=== PATIENT | female | born 1940 | race Caucasian/White ===

== ENCOUNTER 2018-06-13 14:35 | Outpatient (REF) | payer OTHER, SELFPAY ==
[2018-06-15 11:02] LABS: HBs Antibody, Quant <3.1 mIU/mL; Hepatitis B Surface Ab Negative
[2018-06-15 11:14] LABS: Hepatitis B Surface Ag Negative (NEGAT)
[2018-06-15 11:39] LABS: HIV-1/2 Ag & Ab Screen Negative (NEGAT)
[2018-06-15 11:47] LABS: Hepatitis C Ab w Rflx HCV PCR Negative (NEGAT)
== END 2018-06-13 14:36 ==
LOC: NCHCN 14:35
PROVIDERS: PCP Internal Medicine; Visit Provider Internal Medicine
DX: Z77.21 Contact with and (suspected) exposure to potentially hazardous body fluids (principal); Z11.4 Encounter for screening for human immunodeficiency virus [HIV]; Z11.59 Encounter for screening for other viral diseases
CPT/HCPCS: 86706; 86803; 87340; 87389

== ENCOUNTER 2018-08-06 15:21 | Outpatient (REF) | payer MEDICARE, BC, SELFPAY ==
[2018-08-06 21:48] LABS: Bilirubin Negative (Negative); Blood Negative (Negative); Clarity Clear; Glucose Negative (Negative); Ketones Negative (Negative); Leukocyte Esterase Trace (Negative); Nitrite Positive (Negative); Specific Gravity 1.015 (1.005-1.025); Urobilinogen 0.2 EU/dL (Up TO 0.2)
[2018-08-06 22:04] LABS: Bacteria Many HPF (Negative); C & S Indicated? Yes; Casts Negative LPF (Negative); Crystals Negative HPF (Negative); Epithelial Cells Few HPF (Negative); Mucus Negative (Negative); RBC Negative (0-2)
== END 2018-08-06 15:41 ==
LOC: LBN 15:21
PROVIDERS: PCP Internal Medicine; Visit Provider Radiology Radiation Oncology
DX: C49.9 Malignant neoplasm of connective and soft tissue, unspecified (principal)
CPT/HCPCS: 87077; 81003; 81015; 87086; 87186

== ENCOUNTER 2018-10-23 01:07 | Outpatient (CLI) | payer MEDICARE, BC, SELFPAY ==
--- NOTE | 2018-10-23 07:00 | DI.CT_ITS ---
SYMPTOM/DIAGNOSIS: 1 MONTH S/P RESECTION LT UPPER GROIN SARCOMA WITH POST OP RADIATION CT ABDOMEN AND PELVIS: CT scan of the abdomen and pelvis was performed following oral and intravenous contrast material. Comparison is 07/03/18 No acute findings are seen in the lung bases. The liver is normal in size. No evidence of an hepatic mass is seen. The portal and superior mesenteric veins are patent. There is layering debris seen within the gallbladder. No biliary ductal dilatation is seen. The pancreas and juliann-pancreatic soft tissues are unremarkable as are the spleen and adrenal glands. The kidneys show normal and symmetric enhancement. There are hypodensities seen in the kidneys, they are too small for further characterization but likely reflect small cysts. There is a stable cyst in the upper pole of the left kidney. The urinary bladder is intact. The patient appears to be status post hysterectomy. There is diverticulosis of the colon but no evidence of acute diverticulitis. No evidence of bowel obstruction or bowel inflammatory process. No findings to suggest an acute appendicitis are present. There is atherosclerosis of the abdominal aorta but no aneurysmal dilatation. Note is made of a retro-aortic left renal vein. No significant abdominal or pelvic adenopathy, ascites or pneumoperitoneum is seen. Post surgical changes are seen in the left inguinal region. The previously noted enhancing mass in the left inguinal region is not visualized. There is however, a fluid collection in the left inguinal region measuring 7.9 cm transverse by 3.4 cm AP x 6 cm cranial caudad. Degenerative changes are seen in the spine No aggressive osseous lesions are seen in the bones. There are surgical clips seen in the retroperitoneum around the right kidney. There is unchanged thickening seen in the right retroperitoneum. IMPRESSION: 1. Interval resection of the enhancing soft tissue mass in the left inguinal region. 2. 8 cm fluid collection in the left inguinal region. Surgical clips are in this region. This is likely post surgical. This may represent a seroma or resolving hematoma. Abscess cannot be entirely excluded. 3. Stable post surgical changes in the right retroperitoneum 4. No evidence of an acute abdomen.
[2018-10-23 07:42] LABS: CREATININE 0.83 mg/dL (0.55-1.02)
[2018-10-23] MEDS: Omnipaque 350 MG/ML 50 ML BTL IJ (09:15)
[2018-10-23] MEDS: Breeza Beverage 473 ML BTL PO (09:16)
[2018-10-23] MEDS: Omnipaque 350 MG/ML 100 ML BTL IJ (09:17)
== END 2018-10-23 01:27 ==
PROVIDERS: PCP Internal Medicine; Visit Provider Radiology Radiation Oncology
DX: C49.9 Malignant neoplasm of connective and soft tissue, unspecified (principal); Z92.3 Personal history of irradiation; K57.30 Diverticulosis of large intestine without perforation or abscess without bleeding; L76.34 Postprocedural seroma of skin and subcutaneous tissue following other procedure; Z98.890 Other specified postprocedural states
CPT/HCPCS: 36415; 74177; 82565; J3490; Q9967

== ENCOUNTER 2019-02-07 13:53 | Outpatient (REF) | payer MEDICARE, BC, SELFPAY ==
[2019-02-07 22:16] LABS: Anion Gap 7.8 mmol/L (3-11); BUN 23 mg/dL (7-18); CO2 31.2 mmol/L (21.0-32.0); CREATININE 0.86 mg/dL (0.55-1.02); Calcium 9.1 mg/dL (8.5-10.1); Chloride 104 mmol/L (98-107); Glucose 336 mg/dL (70-100); Potassium 4.4 mmol/L (3.5-5.1); Sodium 143 mmol/L (136-145)
== END 2019-02-07 14:13 ==
LOC: NCHCN 13:53
PROVIDERS: PCP Internal Medicine; Visit Provider Registered Nurse
DX: I10 Essential (primary) hypertension (principal)
CPT/HCPCS: 80048

== ENCOUNTER 2019-03-15 10:05 | Outpatient (REF) | payer MEDICARE, BC, SELFPAY ==
[2019-03-15 21:46] LABS: TSH 1.12 uIU/mL (0.358-3.74)
== END 2019-03-15 10:25 ==
LOC: NCHCN 10:05
PROVIDERS: PCP Internal Medicine; Visit Provider Internal Medicine
DX: E03.9 Hypothyroidism, unspecified (principal)
CPT/HCPCS: 84443

== ENCOUNTER 2019-04-15 00:56 | Outpatient (CLI) | payer MEDICARE, BC, SELFPAY ==
[2019-04-15] MEDS: Omnipaque 350 MG/ML 50 ML BTL PO (09:05)
[2019-04-15] MEDS: Breeza Beverage 473 ML BTL PO ×2 (09:05→09:06)
[2019-04-15 09:12] LABS: CREATININE 0.77 mg/dL (0.55-1.02)
--- NOTE | 2019-04-15 10:34 | DI.CT_ITS ---
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 Previously described lung nodules seen on examination of 07/03/18 are again seen and again measure roughly 5 mm in diameter unchanged from the previous study. No new intrapulmonary nodules seen. No mediastinal or hilar adenopathy. Tracheobronchial tree appears intact. No supraclavicular or axillary adenopathy. Aortic graft proximally again noted. No thoracic aortic dissection. No evidence of pulmonary embolic disease. No mediastinal or hilar adenopathy. No pleural effusion. Note is made of hepatic steatosis. Otherwise liver, spleen and pancreas are unremarkable in appearance. No biliary dilatation seen. Presumed gallbladder sludge noted, cholelithiasis not excluded. The adrenals and kidneys are unremarkable with incidental small left renal cortical cyst. The patient reportedly has resection of previously noted sarcoma. Multiple vascular clips again noted in the retroperitoneum. No new retroperitoneal mass or adenopathy. No mesenteric mass or adenopathy. No pelvic mass or adenopathy. Predominantly low attenuation rounded lesion of the left inguinal region again noted grossly unchanged from previous examination of 10/23/18, question mild increase in surrounding fat radiodensity could represent inflammatory change, other etiologies including neoplasm not absolutely excluded. No significant vascular abnormality identified in the abdomen or pelvis. No focal bowel pathology. Colonic diverticulosis noted without diverticulitis. No bony lesion identified in regions surveyed of the chest, abdomen and pelvis. CONCLUSION: 1. Stable appearance of nonspecific 5 mm intrapulmonary nodules. 2. Stable appearance of predominantly fluid attenuation left inguinal mass, question seroma or hematoma. 3. No additional evidence of new metastatic disease of chest, abdomen or pelvis.
[2019-04-15] MEDS: Omnipaque 350 MG/ML 100 ML BTL IJ (10:35)
[2019-04-15] MEDS: Normal Saline Flush 10 ML SYR IVP (10:36)
== END 2019-04-15 01:16 ==
PROVIDERS: PCP Internal Medicine; Visit Provider Radiology Radiation Oncology
DX: C49.9 Malignant neoplasm of connective and soft tissue, unspecified (principal); R91.8 Other nonspecific abnormal finding of lung field; K76.0 Fatty (change of) liver, not elsewhere classified; K57.30 Diverticulosis of large intestine without perforation or abscess without bleeding; Z12.89 Encounter for screening for malignant neoplasm of other sites
CPT/HCPCS: 74177; 71260; 82565; J3490; Q9967

== ENCOUNTER 2019-07-22 00:34 | Outpatient (CLI) | payer MEDICARE, BC, SELFPAY ==
[2019-07-22 08:47] LABS: Abs Immature Grans 0.03 k/cumm (0.0-0.09); Absolute Basophil Count 0.03 k/cumm (0.0-0.2); Absolute Neutrophil Count 3.79 k/cumm (1.2-6.7); Basophils % 0.5; Eosinophils % 1.8; HCT 36.5 % (36.0-46.0); HGB 12.3 g/dL (12.0-15.5); Immature Grans % 0.5; Lymphocytes % 19.8; Mean Corp. HGB Concentration 33.7 g/dL (32.0-36.0); Mean Corpuscular Hemoglobin 30.4 pg (27.0-33.0); Mean Corpuscular Volume 90.1 fL (80-95); Mean Platelet Volume 9.1 fL (8.0-11.0); Neutrophils % 68.4; Platelet Count 204 x1000/uL (130-400); RBC 4.05 m/cumm (4.00-5.20); White Blood Cell Count 5.55 k/cumm (4.4-10.8)
[2019-07-22 09:07] LABS: ALT 27 U/L (14-59); AST 15 U/L (15-37); Albumin 3.6 g/dL (3.4-5.0); Alkaline Phosphatase 68 U/L (46-116); Anion Gap 10.3 mmol/L (3-11); BUN 26 mg/dL (7-18); Bilirubin, Total 0.4 mg/dL (0.2-1.0); CO2 27.7 mmol/L (21.0-32.0); CREATININE 0.74 mg/dL (0.55-1.02); Calcium 8.5 mg/dL (8.5-10.1); Chloride 106 mmol/L (98-107); Glucose 163 mg/dL (70-100); Potassium 3.2 mmol/L (3.5-5.1); Sodium 144 mmol/L (136-145); Total Protein 6.7 g/dL (6.4-8.2)
--- NOTE | 2019-07-22 09:40 | DI.RAD_ITS ---
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 Examination was compared with previous CT of 04/15 2019. The patient reportedly has a history of pleomorphic cell sarcoma. Note is made of a prior thoracotomy with proximal aortic graft. No other significant vascular abnormality seen apart from the calcific plaque of aorta and major vessels. No evidence of pulmonary embolic disease. No mediastinal or hilar adenopathy. No axillary or supraclavicular adenopathy, The previously noted 5 mm left lower lobe intrapulmonary nodule measures 5 x 6 mm on today's examination. Additional nodules see in right upper lobe and left upper lobe are unchanged on today's study measuring roughly 4 mm in diameter.. No new intrapulmonary nodules seen. Tracheobronchial tree appears intact. No pleural effusion seen. Abdominal aorta shows diffuse wall calcification without evidence of aneurysm. No other major vascular abnormalities seen. Multi vascular clips noted in the retroperitoneum consistent with prior sarcoma resection. Mild hepatic steatosis noted. No focal hepatic abnormality seen. Spleen is unremarkable in appearance. Pancreas appears normal. Gallbladder contains sludge but is otherwise unremarkable. No abdominal or retroperitoneal adenopathy. Appendix is normal. No evidence of diverticulitis or bowel obstruction. No significant abdominal wall hernia. Left inguinal fluid collection unchanged from previous examination thought to represent seroma or hematoma. Adrenals and kidneys are unremarkable except for presumed small left renal cyst. No suspicious bony lesion identified on scanning of the chest, abdomen and pelvis. CONCLUSION: Stable appearance of chest, abdomen and pelvis. No change in intrapulmonary nodules which measure up to about 5 mm in diameter No change in left inguinal fluid collection, presumed hematoma/seroma.
[2019-07-22] MEDS: Omnipaque 350 MG/ML 100 ML BTL IJ (09:43)
[2019-07-22] MEDS: Normal Saline Flush 10 ML SYR IVP (09:44)
[2019-07-22] MEDS: Breeza Beverage 473 ML BTL PO (09:44)
[2019-07-22] MEDS: Omnipaque 350 MG/ML 50 ML BTL PO (09:44)
== END 2019-07-22 00:54 ==
PROVIDERS: PCP Internal Medicine; Visit Provider Nurse Practitioner
DX: C49.9 Malignant neoplasm of connective and soft tissue, unspecified (principal); R91.8 Other nonspecific abnormal finding of lung field; K76.0 Fatty (change of) liver, not elsewhere classified; Z98.890 Other specified postprocedural states
CPT/HCPCS: 74177; 80053; 71260; 85025; J3490; Q9967

== ENCOUNTER 2019-10-01 10:20 | Outpatient (REF) | payer MEDICARE, BC, SELFPAY ==
[2019-10-01 21:33] LABS: Potassium 3.6 mmol/L (3.5-5.1)
== END 2019-10-01 10:40 ==
LOC: NCHCN 10:20
PROVIDERS: PCP Internal Medicine; Visit Provider Internal Medicine
DX: E87.6 Hypokalemia (principal)
CPT/HCPCS: 84132

== ENCOUNTER 2020-01-24 12:10 | Outpatient (REF) | payer MEDICARE, BC, SELFPAY ==
[2020-01-24 20:46] LABS: Anion Gap 10.8 mmol/L (3-11); BUN 17 mg/dL (7-18); CO2 29.2 mmol/L (21.0-32.0); CREATININE 0.67 mg/dL (0.55-1.02); Calculated LDL 81 mg/dL (<100); Chloride 105 mmol/L (98-107); Cholesterol 143 mg/dL (<200); Glucose 117 mg/dL (74-106); HDL Cholesterol 33 mg/dL (40-60); Potassium 3.4 mmol/L (3.5-5.1); Sodium 145 mmol/L (136-145); TSH 1.35 uIU/mL (0.36-3.74); Triglyceride 146 mg/dL (<150)
== END 2020-01-24 12:30 ==
LOC: NCHCN 12:10
PROVIDERS: PCP Internal Medicine; Visit Provider Nurse Practitioner Family
DX: I10 Essential (primary) hypertension (principal); E11.9 Type 2 diabetes mellitus without complications; E03.9 Hypothyroidism, unspecified
CPT/HCPCS: 80048; 80061; 84443

== ENCOUNTER 2020-03-17 01:57 | Outpatient (CLI) | payer MEDICARE, BC, SELFPAY ==
[2020-03-17] MEDS: Omnipaque 350 MG/ML 50 ML BTL IJ (07:24)
[2020-03-17] MEDS: Breeza Beverage 473 ML BTL PO ×3 (07:25→07:28)
[2020-03-17 07:31] LABS: Abs Immature Grans 0.02 k/cumm (0.0-0.09); Absolute Basophil Count 0.03 k/cumm (0.0-0.2); Absolute Eosinophil Count 0.08 k/cumm (0.0-0.7); Absolute Lymphocyte Count 1.69 k/cumm (1.2-3.4); Absolute Monocyte Count 0.57 k/cumm (0.11-0.7); Absolute Neutrophil Count 3.37 k/cumm (1.2-6.7); Basophils % 0.5; Eosinophils % 1.4; HCT 38.9 % (36.0-46.0); HGB 13.2 g/dL (12.0-15.5); Immature Grans % 0.3 %; Lymphocytes % 29.3; Mean Corp. HGB Concentration 33.9 g/dL (32.0-36.0); Mean Corpuscular Hemoglobin 30.3 pg (27.0-33.0); Mean Corpuscular Volume 89.2 fL (80-95); Monocytes % 9.9; Neutrophils % 58.6; Platelet Count 222 x1000/uL (130-400); RBC 4.36 m/cumm (4.00-5.20); RBC Distribution Width 13.2 % (11.7-14.6); White Blood Cell Count 5.76 k/cumm (4.4-10.8)
[2020-03-17 07:48] LABS: ALT 31 U/L (14-59); AST 17 U/L (15-37); Albumin 3.7 g/dL (3.4-5.0); Alkaline Phosphatase 62 U/L (46-116); Anion Gap 8.7 mmol/L (3-11); BUN 19 mg/dL (7-18); Bilirubin, Total 0.6 mg/dL (0.2-1.0); CO2 28.3 mmol/L (21.0-32.0); CREATININE 0.87 mg/dL (0.55-1.02); Calcium 9.4 mg/dL (8.5-10.1); Chloride 103 mmol/L (98-107); Glucose 94 mg/dL (74-106); Potassium 3.4 mmol/L (3.5-5.1); Sodium 140 mmol/L (136-145); Total Protein 6.9 g/dL (6.4-8.2)
--- NOTE | 2020-03-17 09:00 | DI.CT_ITS ---
EXAM: CT CHEST/ABD/PEL W CLINICAL HISTORY: PLEOMORPHIC SARCOMA, LT GROIN C49.9, F/U, ASSESS FOR DISEASE PROGRESSION. TECHNIQUE: Imaging Protocol: Axial computed tomography images with coronal and sagittal reformatted images were created and reviewed CONTRAST MATERIAL: Intravenous: Omnipaque 350 Contrast volume:structured data in ml Contrast route:I V - Oral: No no COMPARISON: CT CHEST/ABD/PEL W from 07/22/2019 FINDINGS: CHEST: Heart and great vessels: A proximal aortic stent is again noted. There is extensive calcification of the aorta. There are coronary artery calcifications as well as mitral annular calcifications. The heart is enlarged. There is no evidence of pulmonary emboli or aortic dissection. There are no pleural or pericardial effusions. Adenopathy: None. Lungs: Stable tiny bilateral pulmonary nodules. No mass or infiltrate. Bones: Sternal wires. Old left rib deformities. Degenerative changes in the spine.. ABDOMEN: Liver: There is moderate diffuse fatty infiltration of the liver. No measurable mass. Gallbladder and biliary tract: Sludge versus tiny stones are again seen in the gallbladder. No bilia ry dilation. Pancreas: Normal density, no abnormal calcifications or inflammatory process. Spleen: Normal. Kidneys: Normal size, contour and axis. No radiodense stones or obstructive uropathy. No masses seen. Tiny renal cysts. Retroaortic left renal vein. Adrenal glands: No masses seen. Abdominal Aorta: The aorta and iliac arteries are heavily calcified. PELVIS: Bladder: No gross wall thickening, focal mass or stones. A small amount of air is seen, presumably r elated to catheterization. Bowel: No obstruction or bowel wall thickening. Prominent sigmoid diverticulosis and muscular hypertr ophy. Diverticula are also seen scattered through the descending colon. No evidence of diverticuliti s. Normal appendix. Peritoneal cavity: No ascites, focal collection or mesenteric inflammatory response. Bones: No suspicious lesions or fractures. Reproductive organs: Status post hysterectomy. Lymph nodes: Unremarkable. Multiple surgical clips are again noted in the retroperitoneum. There is a stable left lower abdomin al wall collection with surrounding surgical clips, unchanged. Impression: Stable size of left inguinal seroma. No evidence of metastatic disease. Stable incidental findings. RADIATION DOSE DELIVERED: Total DLP DATA REPOSITORY: All CT scans at this facility are submitted to the National Radiology Data Registry (NRDR) Dose Index Registry (DIR) with the [employer] ([employer]). RADIATION OPTIMIZATION: All CT scans at this facility use at least one of these dose optimization te chniques: automated exposure control; mA and/or kV adjustment per patient size (includes targeted exa ms where dose is matched to clinical indication); or iterative reconstruction.
[2020-03-17] MEDS: Omnipaque 350 MG/ML 100 ML BTL IJ (09:07)
[2020-03-17] MEDS: Normal Saline - Diluent 50 ML VIAL IV (09:08)
== END 2020-03-17 02:17 ==
PROVIDERS: PCP Internal Medicine; Visit Provider Nurse Practitioner
DX: C49.22 Malignant neoplasm of connective and soft tissue of left lower limb, including hip (principal); I51.7 Cardiomegaly; R91.8 Other nonspecific abnormal finding of lung field; K76.0 Fatty (change of) liver, not elsewhere classified; Z95.828 Presence of other vascular implants and grafts
CPT/HCPCS: 74177; 80053; 71260; 85025; J3490; Q9967

== ENCOUNTER 2020-07-24 09:56 | Outpatient (REF) | payer MEDICARE, BC, SELFPAY ==
[2020-07-24 18:56] LABS: COMMENT (LAB VIEW ONLY) 125.73 mg/dL; Microalb ug/mg Crea 23.4 ug/mg Cr
== END 2020-07-24 10:16 ==
LOC: NCHCN 09:56
PROVIDERS: PCP Internal Medicine; Visit Provider Nurse Practitioner Family
DX: E11.9 Type 2 diabetes mellitus without complications (principal)
CPT/HCPCS: 82043; 82570

== ENCOUNTER 2020-09-14 02:16 | Outpatient (CLI) | payer MEDICARE, BC, SELFPAY ==
[2020-09-14] MEDS: Breeza Beverage 473 ML BTL PO ×2 (07:51→07:52)
[2020-09-14] MEDS: Omnipaque 350 MG/ML 50 ML BTL IJ (07:51)
[2020-09-14 08:04] LABS: CREATININE 0.99 mg/dL (0.55-1.02); Estimated GFR 54.25 (mL/min/1.73m2)
[2020-09-14] MEDS: Omnipaque 350 MG/ML 100 ML BTL IJ (09:04)
[2020-09-14] MEDS: Normal Saline - Diluent 50 ML VIAL IV (09:05)
--- NOTE | 2020-09-14 09:05 | DI.CT_ITS ---
EXAM: CT CHEST/ABD/PEL W CLINICAL HISTORY: H/O SARCOMA LT INGUINAL AREA,C49.9,?STATUS OF DISEASE TECHNIQUE: Imaging Protocol: Axial computed tomography images with coronal and sagittal reformatted images were created and reviewed CONTRAST MATERIAL: Intravenous: Omnipaque 350 Contrast volume:100 mL Oral: Yes COMPARISON: CT CT CHEST/ABD/PEL W from 03/17/[address] CHEST/ABD/PEL W from 03/17/2020 FINDINGS: CHEST: Tracheobronchial tree: Patent where visualized. Mediastinum and Moon: No dominant adenopathy or fluid collection. Pulmonary parenchyma: No focal consolidation. There are stable bilateral pulmonary nodules. No new pulmonary nodules are present. No architectural distortion. Pleura: No effusion or pneumothorax. Heart: Mild cardiomegaly. Marked coronary artery calcification. No significant pericardial effusion . Stent in the proximal aorta is again noted. Aorta: Thoracic aorta non-dilated. Atherosclerosis. Lymph nodes: Within normal limits. Bones:Status post sternotomy. No acute or aggressive osseous lesions are identified. Soft tissues: Unremarkable. ABDOMEN: Liver: Diffuse fatty infiltration. No measurable mass. Liver measures 18 cm in length. Portal, Superior Mesenteric, and Splenic Veins: Unremarkable. Gallbladder and Biliary Tract: There is again seen sludge versus stones in the gallbladder. No bilia ry ductal dilatation. Pancreas: Normal density, no abnormal calcifications or inflammatory process. Spleen: Normal. Adrenals: No masses seen. Kidneys: Normal size, contour and axis. No radiodense stones or obstructive uropathy. Stable cysts. Note is made of a retroaortic left renal vein. Abdominal Aorta: Abdominal portion non-dilated. Atherosclerosis. Bowel: No obstruction or bowel wall thickening. Appendix is unremarkable. Colonic diverticulosis. No evidence of acute diverticulitis. Peritoneal Cavity: No ascites, collection or mesenteric inflammatory response. Lymph Nodes: Within normal limits. Bones: Degenerative changes in the spine. No aggressive osseous lesions. Soft Tissues: The left inguinal mass measures 5 cm transverse by 2.6 cm AP. This compares with 5.8 c m transverse by 2.5 cm AP on the examination dated 03/17/2020. PELVIS: Bladder: Incomplete distension of the urinary bladder. There is a small amount of air within the trinh dder which may represent recent catheterization. Reproductive Organs: Status post hysterectomy. Lymph Nodes: Within normal limits. Bones: Degenerative changes. Please see the above discussion. IMPRESSION: 1. The left inguinal lesion measures 5 x 2.6 cm. This compares with 5.8 x 2.5 cm on the prior examin ation on 03/17/2020. 2. Stable pulmonary nodules. RADIATION DOSE DELIVERED: 1,689.11mGy.cm Total DLP DATA REPOSITORY: All CT scans at this facility are submitted to the National Radiology Data Registry (NRDR) Dose Index Registry (DIR) with the [employer] (A[employer]). RADIATION OPTIMIZATION: All CT scans at this facility use at least one of these dose optimization te chniques: automated exposure control; mA and/or kV adjustment per patient size (includes targeted exa ms where dose is matched to clinical indication); or iterative reconstruction.
== END 2020-09-14 02:36 ==
PROVIDERS: PCP Internal Medicine; Visit Provider Nurse Practitioner Family
DX: C49.9 Malignant neoplasm of connective and soft tissue, unspecified (principal); R91.8 Other nonspecific abnormal finding of lung field
CPT/HCPCS: 74177; 71260; 82565; J3490; Q9967

== ENCOUNTER 2020-10-21 10:29 | Outpatient (REF) | payer MEDICARE, BC, SELFPAY ==
[2020-10-21 22:21] LABS: Potassium 4.2 mmol/L (3.5-5.1)
== END 2020-10-21 10:49 ==
LOC: NCHCN 10:29
PROVIDERS: PCP Internal Medicine; Visit Provider Internal Medicine
DX: E87.6 Hypokalemia (principal)
CPT/HCPCS: 84132

== ENCOUNTER 2021-01-12 20:08 | Outpatient (REF) | payer MEDICARE, BC, SELFPAY ==
[2021-01-12 14:17] LABS: Anion Gap 9.1 mmol/L (3-11); BUN 22 mg/dL (7-18); CO2 28.9 mmol/L (21.0-32.0); CREATININE 0.7 mg/dL (0.55-1.02); Calcium 8.8 mg/dL (8.5-10.1); Chloride 107 mmol/L (98-107); Glucose 186 mg/dL (74-106); Potassium 3.4 mmol/L (3.5-5.1); Sodium 145 mmol/L (136-145); TSH 1.01 uIU/mL (0.36-3.74)
== END 2021-01-12 20:09 | disposition home or self-care (01) ==
LOC: NCHCN 20:08
PROVIDERS: PCP Internal Medicine; Visit Provider Internal Medicine
DX: E03.9 Hypothyroidism, unspecified (principal); I10 Essential (primary) hypertension
CPT/HCPCS: 80048; 84443

== ENCOUNTER 2021-01-19 14:16 | Outpatient (REF) | payer MEDICARE, BC, SELFPAY ==
[2021-01-19 15:19] LABS: Abs Immature Grans 0.01 10^3/uL (0.0-0.06); Absolute Basophil Count 0.04 10^3/uL (0.0-0.2); Absolute Eosinophil Count 0.11 10^3/uL (0.0-0.7); Absolute Lymphocyte Count 1.34 10^3/uL (1.2-3.4); Absolute Monocyte Count 0.54 10^3/uL (0.1-0.8); Absolute Neutrophil Count 3.33 10^3/uL (1.2-6.7); Basophils % 0.7; HCT 37.4 % (36.0-46.0); HGB 12.5 g/dL (11.2-15.7); Immature Grans % 0.2; MCH 30.3 pg (27.0-33.0); MCHC 33.4 % (32.0-36.0); MCV 90.6 fL (80-95); MPV 9.8 fL (8.0-11.0); Monocytes % 10.1; Nucleated RBC 0 %; Platelet Count 212 10^3/uL (130-400); RBC 4.13 10^6/uL (3.93-5.22); RDW 12.7 % (11.7-14.6); RDW-SD 41.8 fL; WBC 5.37 10^3/uL (4.4-10.8)
[2021-01-19 16:10] LABS: ALT 27 U/L (14-59); AST 15 U/L (15-37); Albumin 3.5 g/dL (3.4-5.0); Alkaline Phosphatase 66 U/L (46-116); Anion Gap 9.8 mmol/L (3-11); BUN 19 mg/dL (7-18); Bilirubin, Total 0.7 mg/dL (0.2-1.0); CO2 28.2 mmol/L (21.0-32.0); CREATININE 0.7 mg/dL (0.55-1.02); Chloride 105 mmol/L (98-107); Glucose 155 mg/dL (74-106); Potassium 4.1 mmol/L (3.5-5.1); Sodium 143 mmol/L (136-145); Total Protein 6.4 g/dL (6.4-8.2)
[2021-01-20 14:33] LABS: COVID-19 RT-PCR UVMMC Result Negative (Negative)
== END 2021-01-19 14:17 | disposition home or self-care (01) ==
LOC: NCHCN 14:16
PROVIDERS: PCP Internal Medicine; Visit Provider Nurse Practitioner Family
DX: R19.7 Diarrhea, unspecified (principal); R10.9 Unspecified abdominal pain; Z20.822 Contact with and (suspected) exposure to COVID-19
CPT/HCPCS: 80053; 87077; U0003; U0005; 85025; 87086; 87186

== ENCOUNTER 2022-01-11 18:56 | Outpatient (REF) | payer MEDICARE, BC, SELFPAY ==
[2022-01-11 17:41] LABS: Hemoglobin A1C 6.5 % (<5.7)
[2022-01-11 17:59] LABS: Anion Gap 9.2 mmol/L (3-11); BUN 16 mg/dL (7-18); CO2 26.8 mmol/L (21.0-32.0); CREATININE 0.7 mg/dL (0.55-1.02); Calcium 9.1 mg/dL (8.5-10.1); Chloride 107 mmol/L (98-107); Glucose 95 mg/dL (74-106); Sodium 143 mmol/L (136-145); TSH 1.64 uIU/mL (0.36-3.74); Vitamin B12 167 pg/mL (193-986)
[2022-01-11 22:27] LABS: COMMENT (LAB VIEW ONLY) 109.58 mg/dL
== END 2022-01-11 18:57 | disposition home or self-care (01) ==
LOC: NCHCN 18:56
PROVIDERS: PCP Internal Medicine; Visit Provider Internal Medicine
DX: E11.9 Type 2 diabetes mellitus without complications (principal); E78.5 Hyperlipidemia, unspecified; I10 Essential (primary) hypertension; E03.9 Hypothyroidism, unspecified; R41.3 Other amnesia
CPT/HCPCS: 80048; 82043; 82570; 82607; 83036; 84443